=== PATIENT | male | born 1975 | race Caucasian/White ===

== ENCOUNTER → 2024-01-23 07:46 | Outpatient (REF) | payer OTHER, SELFPAY | LOC: RCS 07:46 | PROVIDERS: ATTENDING PHYSICIAN Family Medicine | DX: R00.2 Palpitations (principal) | CPT/HCPCS: 93225; 93226 ==

== ENCOUNTER → 2024-02-04 12:40 | Outpatient (REF) | payer OTHER, SELFPAY | LOC: RCS 12:40 | PROVIDERS: ATTENDING PHYSICIAN Family Medicine | DX: R00.2 Palpitations (principal) | CPT/HCPCS: 93017 ==

== ENCOUNTER 2024-04-26 10:59 | Inpatient (IN) | payer OTHER, SELFPAY ==
[2024-04-25] VITALS (13 sets, daily range): BP systolic 96–133; BP diastolic 63–85; BMI 31.0
[2024-04-25] MEDS: DILAUDID 1 MG IV (01:10)
[2024-04-25] MEDS: ZOFRAN 4 MG IV ×3 (01:10→05:16)
--- NOTE | 2024-04-25 02:01 | ED.MUSCINJ ---
HPI-Injury
General
Chief Complaint: Musculo-Skeletal Complaint
Source: patient, family and ambulance crew
Exam Limitations: none
Time Seen by Provider: 04/25/24 00:10
Nursing documentation reviewed up to this point in time: agreed with
History of Present Illness-Injury
Initial Injury comments:
Pleasant 49-year-old male presents with right ankle pain after a trip and fall. Patient states that he 'set his ankle' after the fall. Patient denies head injury or loss of consciousness. He denies any other injury.
Past History
Past History
ED Past Medical History: None
ED Past Surgical History: None
Social History
Tobacco: Non-smoker
Review of Systems
Review of Systems
Allergies reviewed?: Yes
All Other Systems: ROS reviewed and negative except as documented in HPI and ROS
Musculoskeletal: Reports joint pain and joint swelling
Musculoskeletal Injury Exam
Musculoskeletal Injury Exam
Right Ankle:
Pain with Movement?: Moderate
Tender to palpation?: Mild
Soft tissue swelling?: Mild
Hematoma-local bleeding into tissue?: Mild
Strain- Sprain- Tear (Connective tissue injury)?: Mild
Crepitus with movement?: No
Joint instability?: Yes
Malalignment/deformity?: Yes
Distal skin color and temperature: normal-warm & good color
Capillary Refill: normal
Normal distal neurovascular exam?: Yes
Phy Exam
General Physical Exam
General Presentation: well appearing and mild distress
General age: appears stated age
General Skin: warm
General Habitus: normal
Cardiovascular Exam
Cardiovascular Exam: regular rate/rhythm
Pulmonary Exam
Pulmonary Exam: no respiratory distress
Neurological Exam
Neurological Exam: alert and oriented x3
Musculoskeletal Exam
Musculoskeletal Exam: joint swelling
Skin Exam
Skin Exam: normal color and warm/dry
Psychiatric Exam
Psychiatric Exam: normal mood/affect
Injury Course
Orders/Labs/Results
Orders:
Orders
04/25/24 00:23
Ankle, Right 3 view CR [CR Ankle - Right Min 3 Views *] Urgent
Comment:
Reason For Exam: fall, deformity
04/25/24 01:03
HYDROmorphone [Dilaudid] 1 mg IV NOW STA
Ondansetron Injectable [Zofran] 4 mg IV NOW STA
04/25/24 01:45
Ankle, Right 3 view CR [CR Ankle - Right Min 3 Views *] Urgent
Comment:
Reason For Exam: post splinit
04/25/24 02:11
Crutches-Treatment ONCE
04/25/24 02:44
Ondansetron Injectable [Zofran] 4 mg .ROUTE .STK-MED ONE
04/25/24 02:47
Ondansetron Injectable [Zofran] 4 mg IV NOW STA
04/25/24 03:01
ECG [Electrocardiogram (*1)] Urgent
Reason for Study: Vertigo / Dizzy
04/25/24 03:02
EKG- Treatment ONCE
Procedures
Splinting/Sling Placement
Right Ankle:
Pre-splint extermity exam: abnormal
Type of splint: alf wrap and posterior short leg
Splint material: fiberglass
*Radiology
Radiology exam reviewed: preliminary read by ED provider (Distal fibula fracture)
*Pulse Oximetry
Patient hypoxic: no
*Critical Care Note
Total Time (30-74mins, 75-104mins- exclusive of procedures): Not Applicable
Update Note
Update Note:
04/25/2024 0431 AM: Patient observed. He states that he does not feel well especially with sitting up. He reports increased dizziness. He is warm and diaphoretic. EKG shows sinus rhythm rate of 62 with a right bundle branch block present. OK
interval is 160. Patient denies chest pain. Will admit for observation and possible orthopedic consult. Hospitalist aware.
ED Attending Note
-
Portions of this chart may have been created with voice recognition software.� Occasional wrong word or��sound alike� substitutions may have occurred due to the inherent limitations of voice recognition software.
Discharge Plan
Departure
Patient Disposition: Admit
Date of Disposition: 04/25/24
Time of Disposition: 02:04
Presentation/result/management discussed w/ accepting MD/DO: Hospitalist
Patient with high blood pressure during this ER visit?: Yes
Discharge Problem:
Ankle fracture
Instructions: How to Use Crutches, Ankle Fracture (DC), Splint Care, BLOOD PRESSURE
Prescriptions:
New
oxycodone-acetaminophen [Percocet] 5-325 mg tablet
1 tab PO Q6HPRN PRN (Reason: pain) Qty: 10 0RF
No Action
omeprazole magnesium [Prilosec OTC] 20 MG tablet,delayed release (DR/EC)
40 mg PO DAILY
losartan 50 mg
50 mg PO DAILY
magnesium oxide 400 mg
400 mg PO DAILY PRN (Reason: 'for my heart')
Amlodipine Besylate 5 mg
5 mg PO DAILY
Aspir-81 81 mg
81 mg PO PRN PRN (Reason: 'when I was in high altitude')
Patient Comments:
pt. reports he took yesterday 'b/c of the excessive heat'
Zetia 10 mg
10 mg PO DAILY
nebivolol 10 mg
10 mg PO DAILY
riboflavin (vitamin B2) 400 mg
400 mg PO DAILY
Referrals:
[facility] [Provider Group] - Next open appointment
Lyle Cancino MD [Family Provider] -
Activity Restrictions/Additional Instructions:
Your prescriptions were sent electronically to the pharmacy that you specified.
It was a pleasure meeting you and taking part in your care. We hope for your continued healing and wellness.
Please read discharge instructions in their entirety. However, they are for general education and may not describe your exact diagnosis at discharge. Information on your ER visit and medical conditions were discussed with you along with appropriate
follow up information...
If indicated, please take your medications as instructed and indicated on discharge paperwork.
Please schedule a follow up appointment as directed. Call to schedule an appointment
Please return to the emergency department with ANY change in, persisting, or worsening of symptoms. If any of your symptoms do not improve, or persist, or become more severe within 6-12 hours, please return to the emergency department for further
care.
Please return to the emergency department if you develop a headache, neck pain/stiffness, fever greater than 100.4F, chest pain, shortness of breath, persistent nausea, vomiting, slurred speech, difficulty walking, numbness/tingling, weakness, signs
of infection or any other symptoms that are worrisome to you.
If you have any questions or concerns please do not hesitate to call the Hospital at or E-mail me directly at [email or web address]
Interventions
Interventions:
*Risk Screen - Suicide Last Done: 04/25/24 00:09
*General Assessment Last Done: 04/25/24 00:09
*Neglect/Abuse Screening Last Done: 04/25/24 00:09
*ED COVID-19 Vaccine History Last Done: 04/25/24 00:09
ED-Musculoskeletal Assessment Last Done: 04/25/24 00:45
Discharge Date and Time
Print Language: MOZAMBICAN
--- NOTE | 2024-04-25 03:39 | EDRN ---
When RN entered room to d/c pt., pt. reports feeling warm and dizzy. Pt. reports he does not take narcotic medications often, reports 'I usually feel tired, not so much dizzy'. Pt. denies chest pain, does endorse nausea. EKG ordered and performed.
Pt. medicated for nausea. RN to continue to monitor.
--- NOTE | 2024-04-25 04:20 | EDRN ---
Pt. continues to feel extremely dizzy and nauseas, pt. intermittently c/o 'charley horses' to his. rt. posterior calf. DP pulses remain intact, cap. refill <3, pt. able to move toes distally to injury; however, pt. still w/ intermittent severe pain.
Pt. assisted to use bathroom, vomited twice upon return to stretcher. MD Jordan to bedside, reassessed pt. and agrees w/ pt. that he is not appropriate for discharge and warrants admission. Pt. and family agreeable w/ plan.
--- NOTE | 2024-04-25 04:23 | HPS.HSE ---
Family Physician
-
Family Physician: Lyle Cancino
Chief Complaint
-
Tripped and fall , Rt ankle pain
History of Present Illness
49 M HX HTN pw Rt ankle pain after tripped and fall.
he heard crack when he fall. Too painful to walk
Patient denies head injury or loss of consciousness. He denies any other injury.
At ER
nausea and vomiting with Dilaudid
Declined narcotics
Medical History
Past Medical History
Past Medical History: Reports HTN and Hypercholesterolemia
Past Surgical History: Reports None
Social History
Tobacco: Former Smoker
Alcohol: None
Family History
Family History: Not pertinent
Allergies / Home Medications
Allergies reflects when Allergies were last updated in [facility].
Home Medications with original date entered in [facility]
Allergy/Medication List:
Allergies
Allergy/AdvReac Type Severity Reaction Status Date / Time
No Known Allergies Allergy Verified 04/25/24 00:09
Home Medications
omeprazole magnesium 20 mg tablet,delayed release (Prilosec OTC) 40 mg PO DAILY 06/01/21
Amlodipine Besylate 5 mg PO DAILY 04/25/24
Aspir-81 81 mg PO PRN PRN 'when I was in high altitude' 04/25/24
Zetia 10 mg PO DAILY 04/25/24
losartan 50 mg PO DAILY 04/25/24
magnesium oxide 400 mg PO DAILY PRN 'for my heart' 04/25/24
nebivolol 10 mg PO DAILY 04/25/24
oxycodone-acetaminophen 5 mg-325 mg tablet (Percocet) 1 tab PO Q6HPRN PRN pain #10 tabs 04/25/24
riboflavin (vitamin B2) 400 mg PO DAILY 04/25/24
Review of Systems
-
Constitutional: Reports No Symptoms
EENT: Reports No Symptoms
Respiratory: Reports No Symptoms
Cardiac: Reports No Symptoms
Abdomen/GI: Reports No Symptoms
: Reports No Symptoms
Musculoskeletal: Reports See HPI
Skin: Reports No Symptoms
Neurological: Reports No Symptoms
Endocrine: Reports No Symptoms
Hematologic/Lymphatic: Reports No Symptoms
Psych: Reports No Symptoms
Physical Exam
Vital Signs
Vital Signs
Temp Pulse Resp BP Pulse Ox
98.2 F 71 16 127/80 95
04/25/24 00:09 04/25/24 03:30 04/25/24 00:09 04/25/24 02:36 04/25/24 03:30
Physical Exam
General: Well Developed, Well Nourished and No Apparent Distress
HEENT: NormoCephalic, Moist mucous membranes and Atraumatic
Respiratory: Clear
Cardiac: S1/S2 and Regular Rhythm; No Murmur or Rub
GI: Soft, Non Tender, Non Distended and Normal Bowel Sounds; No Organomegaly
Rectal: Deferred by Provider
Musculoskeletal: No Clubbing, No Cyanosis, No Edema and Other (Lt ankle pain and tenderness )
Skin: No Rash
Neuro: AO x 3 and Nonfocal/grossly intact
Laboratory Results
-
Nil
Data Reviewed
-
Diagnostic Radiology: Discussed with Physician
Impression/Plan
-
Data
Nil
XR Ankle:
Rt distal fibula fracture
ASSESSMENT & PLAN
Acute Rt distal fibula Fx
Acute ambulatory dysfunction
- Fx set protocol for PRN Analgesia
- PT/OT
- Ortho consulted
Intolerance to Dilaudid
Nausea and vomiting with Dilaudid
- Declined further PRN narcotics
- add anti emetics
[facility]ia HTN
- cont amlodipine
HLD
- on Zetia
Pending Rx reconciliation
DVT Px: LMWH
Code: Full
Obs MS
[2024-04-25 05:31] LABS: Hematocrit 45.8 % (39.0-52.0); Hemoglobin 15.4 g/dL (13.0-18.0); Mean Corp Hgb Conc. 33.6 g/dL (33.0-37.0); Mean Corpuscular Hgb 30.7 pg (27.0-31.0); Mean Corpuscular Volume 91.2 fL (80.0-94.0); Mean Platelet Volume 9.5 fL (7.4-10.4); Platelet Count 282 10^3/uL (130-400); Red Blood Cell Count 5.02 10^6/uL (4.70-6.10); White Blood Cell Count 15.9 10^3/uL (4.8-10.8)
[2024-04-25] MEDS: TORADOL 30 MG IV ×2 (05:36→13:03)
[2024-04-25 05:55] LABS: Blood Urea Nitrogen 38 mg/dl (9-20); Calcium 9.6 mg/dl (8.4-10.2); Carbon Dioxide 16 mmol/L (22-30); Chloride 106 mmol/L (98-107); Estimated Creatinine Clearance 108 ml/min; Glucose 137 mg/dl (70-99); Potassium 4.7 mmol/L (3.5-5.1); Sodium 138 mmol/L (135-145); eGFR > 60.00
[2024-04-25 08:47] LABS: NT-proBNP < 20.0 pg/ml
[2024-04-25 09:19] LABS: D-Dimer 0.63 ug/mlFEU (0.00-0.50)
[2024-04-25 09:51] LABS: Procalcitonin < 0.05 ng/ml (0.0-0.25)
[2024-04-25] MEDS: NORVASC 5 MG PO (10:17)
[2024-04-25] MEDS: COZAAR 50 MG PO (10:17)
[2024-04-25] MEDS: TYLENOL 650 MG PO ×4 (10:17→20:16)
[2024-04-25] MEDS: PROTONIX 40 MG PO (10:18)
[2024-04-25] MEDS: ZETIA 10 MG PO (10:18)
[2024-04-25] MEDS: BYSTOLIC 10 MG PO (10:18)
--- NOTE | 2024-04-25 11:33 | CON.ORTHO ---
Consultation
-
Date/Time Consultation Requested: Apr 26
Date/Time Consultation Performed: Apr 26
Requesting Provider: Brandie
Performing Provider: Brent for [facility]
Reason for Consultation: Right ankle fracture
Consultation - Orthopedics
History
Dictation#[id number]
I was asked to see this very pleasant 49-year-old white male with a PMH of HTN and GERD who unfortunately sustained a mechanical trip and fall at home last evening in his bedroom. He states that he turned around after putting some laundry on the
dresser next thing he knew he was on the ground. He is unsure if he had loss of consciousness. He has been having some issues with BP management recently and has been working with his PCP. Symptoms include lightheadedness and dizziness. Although
he is unsure if he lost consciousness he does not believe he struck his head. He denies any previous issues with the right foot or ankle other than a minor ankle sprain in the remote past. X-rays in the emergency room at did reveal a right
distal fibular shaft fracture with widening of the medial clear space indicative of syndesmotic and ligamentous injury resulting in an unstable ankle. We have been requested in consultation. of note he does report history of 4 spine surgeries in
the remote past in [facility]. he reports the initial surgery became infected and he required 3 additional surgeries. At 1 point he was bacteremic and needed to be treated with IV ABX via PICC. He eventually had the hardware removed.
Allergies / Home Medications
Allergy/AdvReac Type Severity Reaction Status Date / Time
No Known Allergies Allergy Verified 04/25/24 00:09
�Medication �Instructions �Recorded
omeprazole magnesium 20 mg 40 mg PO DAILY 06/01/21
tablet,delayed release (Prilosec
OTC)
Amlodipine Besylate 5 mg PO DAILY 04/25/24
Aspir-81 81 mg PO PRN PRN 'when I was in 04/25/24
high altitude'
Zetia 10 mg PO DAILY 04/25/24
losartan 50 mg PO DAILY 04/25/24
magnesium oxide 400 mg PO DAILY PRN 'for my heart' 04/25/24
nebivolol 10 mg PO DAILY 04/25/24
oxycodone-acetaminophen 5 mg-325 1 tab PO Q6HPRN PRN pain #10 tabs 04/25/24
mg tablet (Percocet)
riboflavin (vitamin B2) 400 mg PO DAILY 04/25/24
Vital Signs / Lab Results
Temp Pulse Resp BP Pulse Ox
98.5 F 81 18 124/80 96
04/25/24 09:00 04/25/24 09:00 04/25/24 09:00 04/25/24 09:00 04/25/24 09:00
04/25/24 05:19
04/25/24 05:19
Assessment / Plan
PE: Afeb. Currently at bedrest. RLE splinted and dressed. Elevated on pillows. No open wounds reported. Full sensation and function distally.
Xrays: Displaced right distal fibular shaft fracture with widening of the medial clear space indicative of an unstable ankle injury
Impression: KAMERON
Plan: Unfortunately Efe's right ankle fracture has destabilized his ankle. We had an at length discussion regarding the injury and our proposed surgical recommendations. Nonoperative and operative management of this fracture were discussed at
length, but after discussing the RBAs of each approach he has accepted all the proposed risks of proceeding with surgery. We discussed the postoperative and rehab course briefly and he understands there will be a period of non-limited
weightbearing. Fortunately he can work remotely. we will arrange for right ankle ORIF under the direction of Dr. Schuler on Friday. I discussed with attending hospitalist, Dr. Chung. Given his recent BP management issues it was felt best to
observe for 24 hours and to have a preoperative echo (tomorrow). surgical and blood consents has been signed and placed on the patient's chart. Given his spine history we will request a MRSA swab. if this is positive it would be prudent to add
preoperative vancomycin. T&S has been requested. I have made him NPO pMN on Friday night for Friday OR. Irrigation products and ABX have been ordered. Case has been posted via the nursing molding room supervisor. Please D/C Lovenox, at the latest, the night
before surgery
This patient was seen in tandem with Dr. Andrade
--- NOTE | 2024-04-25 14:32 | W.PN.HOSP.TC ---
Today's Communication/Plan
-
see outlined plan
Assessment / Plan
Assessment / Plan
Assessments:
Mechanical Fall
Displaced right distal fibular shaft fracture with widening of the medial clear space indicative of an unstable ankle injury
- OR Friday per Orthopedics
- Pain control with Toradol, Tylenol
- DVT ppx with Lovenox, dc evening prior to OR
Essential HTN with episodic dizziness causing fall
- monitor on tele
- check Echo
- continue Norvasc/Losartan for now - monitor for changes to dosing
- hold Nebivolol
HLD - statin
DVT ppx: Lovenox
Code: Full
Anticipated Discharge: > 48 hours
Subjective/Interval History
-
Date of Service: April 25, 2024
R ankle pain stable
elevated on pillows
Objective Data
-
Labs:
Laboratory Results
04/25/24
05:19
WBC 15.9 H
Hgb 15.4
Hct 45.8
Plt Count 282
Sodium 138
Potassium 4.7
Chloride 106
Carbon Dioxide 16 L
BUN 38 H
Creatinine 1.2
Glucose 137 H
Calcium 9.6
Vital Signs:
Vital Signs
Temp Pulse Resp BP Pulse Ox
98.5 F 81 18 124/80 96
04/25/24 09:00 04/25/24 09:00 04/25/24 09:00 04/25/24 09:00 04/25/24 09:00
Physical Exam
-
General: No Apparent Distress
HEENT: Normocephalic and Atraumatic
Respiratory: Negative Wheezes
Cardiac: Regular Rhythm and S1/S2
GI: Soft
Genito-urinary: No Costovertebral Tender
Musculoskeletal: Other (RLE ankle splinted/dressed, elevated on pillows)
Neuro: AO x 3
Hematologic / Lymphatic: No Lymphadenopathy
Psych: Calm
Data Reviewed
-
Total Time Spent with Patient (in minutes): 45
Labs: Labs Reviewed by me
--- NOTE | 2024-04-25 15:57 | CM ---
Per Attending, patient has an ankle fracture and will have surgery on Friday
[2024-04-25] MEDS: LOVENOX 40 MG SC (17:37)
[2024-04-25] MEDS: ROXICODONE 5 MG PO ×2 (17:37→21:37)
[2024-04-25] MEDS: SENOKOT 17.1999999999999993 MG PO (20:15)
[2024-04-25] MEDS: COLACE 100 MG PO (20:16)
[2024-04-26] MEDS: TYLENOL 650 MG PO ×6 (01:37→21:13)
[2024-04-26] MEDS: ROXICODONE 5 MG PO ×2 (01:37→05:38)
[2024-04-26 03:15] VITALS: BP 122/70
[2024-04-26 06:05] LABS: % Basophils 0.3 % (0-2); % Eosinophils 0.8 % (0-6); % Immature Granulocytes 0.9 % (0-0.5); % Monocytes 11.8 % (1.7-9.3); % Neutrophils 71.2 % (42.2-75.2); Absolute Eosinophils 0.1 10^3/uL (0-0.7); Absolute Immature Granulocytes 0.1 10^3/uL (0-0.05); Absolute Lymphocytes 1.3 10^3/uL (1.2-3.4); Absolute Neutrophils 6.2 10^3/uL (1.4-6.5); Hematocrit 40.1 % (39.0-52.0); Hemoglobin 13.3 g/dL (13.0-18.0); Mean Corp Hgb Conc. 33.2 g/dL (33.0-37.0); Mean Corpuscular Hgb 30.9 pg (27.0-31.0); Mean Corpuscular Volume 93.3 fL (80.0-94.0); Mean Platelet Volume 9.4 fL (7.4-10.4); Nucleated Red Blood Cells % 0 % (-); Platelet Count 225 10^3/uL (130-400); Red Cell Dist. Width 14.3 % (11.5-14.5); White Blood Cell Count 8.7 10^3/uL (4.8-10.8)
[2024-04-26 06:23] LABS: Blood Urea Nitrogen 29 mg/dl (9-20); Calcium 9.3 mg/dl (8.4-10.2); Carbon Dioxide 24 mmol/L (22-30); Chloride 107 mmol/L (98-107); Estimated Creatinine Clearance > 125 ml/min; Glucose 97 mg/dl (70-99); Potassium 4.6 mmol/L (3.5-5.1); Sodium 136 mmol/L (135-145); eGFR > 60.00
[2024-04-26 07:00] VITALS: BP 136/83
--- NOTE | 2024-04-26 08:01 | W.PN.UPDATE ---
Update Note
Progress Note Update
49-year-old male right bimalleolar equivalent ankle fracture DOI 25 April 2024
-Plan for OR for definitive fixation [address] Schuler
-Consent on file
-Nasal MRSA swab pending; if positive recommend preoperative vancomycin and nasal mupirocin. Pending at time of note
-Hold Lovenox night before surgery, n.p.o. at midnight
-Irrigation and antibiotic preop orders on file
[2024-04-26] MEDS: COLACE 100 MG PO ×2 (09:23→21:13)
[2024-04-26] MEDS: SENOKOT 17.1999999999999993 MG PO ×2 (09:23→21:13)
[2024-04-26] MEDS: PROTONIX 40 MG PO (09:23)
[2024-04-26] MEDS: ZETIA 10 MG PO (09:24)
--- NOTE | 2024-04-26 10:55 | W.PN.HOSP.TC ---
Addendum entered and electronically signed by Michelle Chung MD 04/26/24 14:45:
unremarkable Echocardiogram. ok to proceed to OR without additional testing
Original Note:
Today's Communication/Plan
-
Coreg for BP Control
await Echo for pre-op evaluation
Assessment / Plan
Assessment / Plan
Assessments:
Mechanical Fall
Displaced right distal fibular shaft fracture with widening of the medial clear space indicative of an unstable ankle injury
- OR Friday per Orthopedics
- Pain control with Toradol, Tylenol
- DVT ppx with Lovenox, dc after today's afternoon dose
Essential HTN with episodic dizziness causing fall
- monitor on tele
- Echo
- stop Nebivolol/Norvasc/Losartan
- start Coreg 12.5mg BID And assess response
- noted prior Holter/Stress were unremarkable
HLD - statin
DVT ppx: Lovenox until this evening then DC for surgery. add SCDS to LLE
Code: Full
Anticipated Discharge: > 48 hours
Subjective/Interval History
-
Date of Service: April 26, 2024
no new complaints
Objective Data
-
Labs:
Laboratory Results
04/26/24
05:17
WBC 8.7
Hgb 13.3
Hct 40.1
Plt Count 225 D
Sodium 136
Potassium 4.6
Chloride 107
Carbon Dioxide 24
BUN 29 H
Creatinine 1.0
Glucose 97
Calcium 9.3
Vital Signs:
Vital Signs
Temp Pulse Resp BP Pulse Ox
97.6 F 59 18 136/83 97
04/26/24 07:00 04/26/24 07:00 04/26/24 07:00 04/26/24 07:00 04/26/24 07:00
I&O
04/25/24 04/26/24 04/27/24
06:59 06:59 06:59
Intake Total 960 / 960
Output Total 1125 / 1125
Balance -165 / -165
Physical Exam
-
General: No Apparent Distress
HEENT: Normocephalic and Atraumatic
Cardiac: Regular Rhythm and S1/S2
GI: Soft
Genito-urinary: No Costovertebral Tender
Neuro: AO x 3
Hematologic / Lymphatic: No Lymphadenopathy
Psych: Calm
Data Reviewed
-
Total Time Spent with Patient (in minutes): 41
Labs: Labs Reviewed by me
[2024-04-26 11:00] VITALS: BP 137/77
[2024-04-26] MEDS: COREG 12.5 MG PO ×2 (11:16→21:14)
[2024-04-26] MEDS: COZAAR PO (12:40)
[2024-04-26] MEDS: NORVASC PO (12:40)
[2024-04-26 15:00] VITALS: BP 141/83
--- NOTE | 2024-04-26 16:03 | CM ---
Alert awake oriented patient who lives with his Jo Ann who lives in a 2 story home with 1 step to enter and 12 steps to bed and bathroom. He is independent in all activities of daily living [employer]. He is now using crutches and walker . He will have
surgery tomorrow.
No VN hx /No SNF hx
Pharmacy [facility] [place]
PCP DR Cancino
PLAN Home no anticipated needs
[2024-04-26] MEDS: LOVENOX 40 MG SC (17:16)
[2024-04-26 19:33] VITALS: BP 113/80
[2024-04-26 23:04] VITALS: BP 124/75
[2024-04-27] VITALS (14 sets, daily range): BP systolic 132–153; BP diastolic 83–106; PULSE 73–103
[2024-04-27] MEDS: TYLENOL 650 MG PO ×5 (00:56→19:58)
[2024-04-27 05:39] LABS: % Basophils 0.7 % (0-2); % Lymphocytes 21.4 % (20.5-51.1); % Monocytes 11.6 % (1.7-9.3); % Neutrophils 64.3 % (42.2-75.2); Absolute Basophils 0.1 10^3/uL (0-0.2); Absolute Eosinophils 0.1 10^3/uL (0-0.7); Absolute Immature Granulocytes 0.1 10^3/uL (0-0.05); Absolute Lymphocytes 1.6 10^3/uL (1.2-3.4); Absolute Monocytes 0.9 10^3/uL (0.1-0.6); Absolute Neutrophils 4.9 10^3/uL (1.4-6.5); Hematocrit 41.6 % (39.0-52.0); Hemoglobin 13.9 g/dL (13.0-18.0); Mean Corp Hgb Conc. 33.4 g/dL (33.0-37.0); Mean Corpuscular Hgb 30.8 pg (27.0-31.0); Mean Corpuscular Volume 92.2 fL (80.0-94.0); Nucleated Red Blood Cells % 0 % (-); Platelet Count 231 10^3/uL (130-400); Red Blood Cell Count 4.51 10^6/uL (4.70-6.10); Red Cell Dist. Width 13.8 % (11.5-14.5); White Blood Cell Count 7.7 10^3/uL (4.8-10.8)
[2024-04-27 06:08] LABS: Blood Urea Nitrogen 22 mg/dl (9-20); Calcium 9.4 mg/dl (8.4-10.2); Carbon Dioxide 27 mmol/L (22-30); Chloride 105 mmol/L (98-107); Estimated Creatinine Clearance > 125 ml/min; Glucose 101 mg/dl (70-99); Potassium 4.5 mmol/L (3.5-5.1); Sodium 139 mmol/L (135-145); eGFR > 60.00
--- NOTE | 2024-04-27 07:33 | W.PN.UPDATE ---
Update Note
Progress Note Update
Mr. Kellogg is resting comfortably in bed this morning. He reports that his pain is well controlled.
Directed exam of RLE. Dressings in place. ROM ankle deferred. Wiggle all toes. Sensation intact to light touch. Cap refill <2secs
49M with right fibula fracture
-Plan for OR later today for right ankle ORIF under the direction of Dr. Schuler
-Consents have been obtained
-Remain NPO
-NWB to RLE
-Pain control as needed
-Will follow along
[2024-04-27 08:15] LABS: COVID-19 Antigen Negative (Negative)
--- NOTE | 2024-04-27 09:06 | W.PN.HOSP.TC ---
Today's Communication/Plan
-
SCDS to LLE only
continue Coreg for BP Control
ok to proceed to OR this afternoon for right ankle ORIF
Assessment / Plan
Assessment / Plan
Assessments:
Mechanical Fall
Displaced right distal fibular shaft fracture with widening of the medial clear space indicative of an unstable ankle injury
- OR today for right ankle ORIF with Orthopedics/Podiatry
- Pain control with Toradol, Tylenol
- Post-op PT/OT
Essential HTN with episodic dizziness causing fall
- monitor on tele
- Echo: normal
- stop Nebivolol/Norvasc/Losartan
- start Coreg 12.5mg BID And follow BP trends; so far responding well
- noted prior Holter/Stress were unremarkable
HLD - statin
DVT ppx: SCDs to LLE while off Lovenox for surgery
Code: Full
Anticipated Discharge: 24 - 48 hours
Subjective/Interval History
-
Date of Service: April 27, 2024
no acute complaints
for OR Today
Objective Data
-
Labs:
Laboratory Results
04/27/24
05:10
WBC 7.7
Hgb 13.9
Hct 41.6
Plt Count 231
Sodium 139
Potassium 4.5
Chloride 105
Carbon Dioxide 27
BUN 22 H
Creatinine 0.9
Glucose 101 H
Calcium 9.4
Vital Signs:
Vital Signs
Temp Pulse Resp BP Pulse Ox
98.1 F 66 18 136/85 95
04/27/24 07:00 04/27/24 07:00 04/27/24 07:00 04/27/24 07:00 04/27/24 07:00
I&O
06/24/24 06/25/24 06/26/24
06:59 06:59 06:59
Intake Total 960 / 960 2130 / 2130
Output Total 1125 / 1125 1100 / 1100
Balance -165 / -165 1030 / 1030
Physical Exam
-
General: No Apparent Distress
HEENT: Normocephalic and Atraumatic
Respiratory: Negative Wheezes
Cardiac: Regular Rhythm and S1/S2
Musculoskeletal: Other (RLE ankle splinted/dressed, elevated on pillows)
Neuro: AO x 3
Psych: Calm
Data Reviewed
-
Total Time Spent with Patient (in minutes): 45
Labs: Labs Reviewed by me
[2024-04-27] MEDS: ZETIA 10 MG PO (09:11)
[2024-04-27] MEDS: PROTONIX 40 MG PO (09:12)
[2024-04-27] MEDS: COLACE 100 MG PO ×2 (09:12→19:58)
[2024-04-27] MEDS: SENOKOT 17.1999999999999993 MG PO ×2 (09:12→19:58)
[2024-04-27] MEDS: COZAAR PO (09:14)
[2024-04-27] MEDS: NORVASC PO (09:14)
[2024-04-27] MEDS: COREG 12.5 MG PO ×2 (09:14→19:58)
--- NOTE | 2024-04-27 10:05 | W.PN.UPDATE ---
Update Note
Progress Note Update
notified by RN and infection prevention that patients roommate is COVID+ so will repeat swabs on 04/29 and 05/01 (if remains hospitalized into those dates). Patient without symptoms.
[2024-04-27] MEDS: TYLENOL PO ×2 (15:21→23:53)
--- NOTE | 2024-04-27 17:07 | W.PN.UPDATE ---
Update Note
Progress Note Update
s/p right ankle ORIF with syndesmotic and deltoid repair
-NWB RLE
-Ancef x 3 doses or until discharge if sooner than 24 hours
-PT/OT eval
-Dressings C/D/I
-Pain control prn
-Follow up 2 weeks
[2024-04-27] MEDS: DILAUDID 0.5 MG IV ×2 (17:21→17:37)
[2024-04-27] MEDS: ANCEF 5 IV (22:48)
[2024-04-28] VITALS (8 sets, daily range): BP systolic 116–153; BP diastolic 74–90; PULSE 72–74
[2024-04-28] MEDS: TYLENOL 650 MG PO ×5 (04:41→23:42)
[2024-04-28] MEDS: ANCEF 5 IV ×2 (05:45→14:01)
[2024-04-28 05:48] LABS: % Basophils 0.2 % (0-2); % Immature Granulocytes 0.9 % (0-0.5); % Lymphocytes 11.8 % (20.5-51.1); % Monocytes 8.8 % (1.7-9.3); % Neutrophils 78.3 % (42.2-75.2); Absolute Immature Granulocytes 0.1 10^3/uL (0-0.05); Absolute Lymphocytes 1.4 10^3/uL (1.2-3.4); Hematocrit 40.2 % (39.0-52.0); Hemoglobin 14.1 g/dL (13.0-18.0); Mean Corp Hgb Conc. 35.1 g/dL (33.0-37.0); Mean Corpuscular Hgb 31.1 pg (27.0-31.0); Mean Corpuscular Volume 88.7 fL (80.0-94.0); Mean Platelet Volume 8.8 fL (7.4-10.4); Nucleated Red Blood Cells % 0 % (-); Platelet Count 249 10^3/uL (130-400); Red Blood Cell Count 4.53 10^6/uL (4.70-6.10); Red Cell Dist. Width 13.7 % (11.5-14.5); White Blood Cell Count 11.5 10^3/uL (4.8-10.8)
[2024-04-28 06:46] LABS: Blood Urea Nitrogen 24 mg/dl (9-20); Calcium 9.1 mg/dl (8.4-10.2); Carbon Dioxide 26 mmol/L (22-30); Chloride 102 mmol/L (98-107); Estimated Creatinine Clearance > 125 ml/min; Glucose 103 mg/dl (70-99); Potassium 4.4 mmol/L (3.5-5.1); Sodium 136 mmol/L (135-145); eGFR > 60.00
--- NOTE | 2024-04-28 07:44 | W.PN.ORTHO ---
Today's Communication / Plan
-
49 yp M POD 1 right ankle ORIF with syndesmotic and deltoid repair under the direction of Dr. Bhatt
--Non-weight bearing right lower extremity. We appreciate the assistance of PT/OT while patient admitted.
--Ancef x 3 doses or until discharge if sooner than 24 hours.
--ASA 325 mg daily x4 weeks for DVT ppx.
--Maintain surgical dressing until post-operative visit. Follow up outpatient at 2 weeks post-op for suture removal and repeat x-rays.
--Pain control as needed. Ice and elevation for pain and edema control.
--Orthopedics will continue to follow along.
Assessment
.
Distal Motor Intact: Yes
Dressing:
Clean, dry and intact.
Plan
.
Surgery / Date: Right ankle ORIF, Harini, 04/27
DVT Prophylaxis: Aspirin
Activity:
Out of bed.
PT/OT
Subjective
.
.:
Mr. Kellogg is POD1 following his Right ankle bimalleolar ankle open reduction internal fixation with syndesmotic fixation and deltoid repair as well as stress exam under anesthesia performed by Dr. Schuler. He is resting comfortably in bed this
morning, and reports his pain is well controlled at present.
Vital Signs and Labs
.
Vital Signs and Labs:
Lab Results
04/28/24 05:33
04/28/24 05:33
Temp Pulse Resp BP Pulse Ox
97.8 F 66 12 116/74 96
04/28/24 03:00 04/28/24 03:00 04/28/24 03:00 04/28/24 03:00 04/28/24 03:00
Physical Exam
-
Directed exam of the right lower extremity reveals surgical splint clean, dry and intact. Good color and warmth of toes. Patient able to wiggle toes. Sensation intact to light touch above and below splint. Capillary refill <2 seconds.
[2024-04-28] MEDS: COREG 12.5 MG PO ×2 (08:09→20:04)
[2024-04-28] MEDS: COLACE 100 MG PO ×2 (08:09→20:04)
[2024-04-28] MEDS: SENOKOT 17.1999999999999993 MG PO ×2 (08:09→20:04)
[2024-04-28] MEDS: PROTONIX 40 MG PO (08:09)
[2024-04-28] MEDS: ZETIA 10 MG PO (08:09)
--- NOTE | 2024-04-28 11:31 | W.PN.HOSP.TC ---
Today's Communication/Plan
-
monitor vitals
see plan
pain control
pt/ot
DVT ppx per ortho post OP; confirmed, full dose aspirin for 4 weeks
Assessment / Plan
Assessment / Plan
Assessments:
Mechanical Fall
Displaced right distal fibular shaft fracture with widening of the medial clear space indicative of an unstable ankle injury
-s/p right ankle ORIF with Orthopedics/Podiatry
-cw pain control
PT/OT rec outpt PT/OT
ASA 325 mg daily x4 weeks for DVT ppx.
--Maintain surgical dressing until post-operative visit. Follow up outpatient at 2 weeks post-op for suture removal and repeat x-rays.
--Pain control as needed. Ice and elevation for pain and edema control.
Essential HTN with episodic dizziness causing fall
- monitor on tele
- Echo: normal
- stop Nebivolol/Norvasc/Losartan
- start Coreg 12.5mg BID And follow BP trends; so far responding well
- noted prior Holter/Stress were unremarkable
HLD - statin
DVT ppx: SCDs to LLE; post OP per ortho
Code: Full
General: No Apparent Distress
HEENT: Normocephalic and Atraumatic
Respiratory: Negative Wheezes
Cardiac: Regular Rhythm and S1/S2
Musculoskeletal: Other (RLE ankle splinted/dressed, elevated on pillows)
Neuro: AO x 3
Psych: Calm
Anticipated Discharge: Within 24 hours
Subjective/Interval History
-
Date of Service: April 28, 2024
has pain
Objective Data
-
Labs:
Laboratory Results
04/28/24
05:33
WBC 11.5 H
Hgb 14.1
Hct 40.2
Plt Count 249
Sodium 136
Potassium 4.4
Chloride 102
Carbon Dioxide 26
BUN 24 H
Creatinine 1.0
Glucose 103 H
Calcium 9.1
Vital Signs:
Vital Signs
Temp Pulse Resp BP Pulse Ox
97.9 F 66 18 135/88 97
04/28/24 07:00 04/28/24 07:00 04/28/24 07:00 04/28/24 07:00 04/28/24 07:00
I&O
04/27/24 04/28/24 04/29/24
06:59 06:59 06:59
Intake Total 2130 / 2130 1210 / 1210
Output Total 1100 / 1100 1400 / 1400
Balance 1030 / 1030 -190 / -190
[2024-04-28] MEDS: ASPIRIN ENTERIC COATED 325 MG PO (12:03)
[2024-04-28] MEDS: TORADOL 30 MG IV ×2 (14:01→20:04)
--- NOTE | 2024-04-28 16:16 | CM ---
Case management following for d/c planning
POD 1 ORIF with syndesmotic and deltoid repair
PT recommending out patient therapy at d/c
Pt will need Rx at d/c
Pt will have ride at d/c
Plan - home with outpatient physical therapy
[2024-04-28] MEDS: TYLENOL PO (20:04)
[2024-04-29 03:16] VITALS: BP 143/87
[2024-04-29] MEDS: TYLENOL PO (05:02)
--- NOTE | 2024-04-29 06:06 | W.PN.ORTHO ---
Today's Communication / Plan
-
49 y/o M POD 2 right ankle ORIF with syndesmotic and deltoid repair under the direction of Dr. Schuler.
--Non-weight bearing right lower extremity. We appreciate the assistance of PT/OT while patient admitted.
--ASA 325 mg daily x4 weeks for DVT ppx.
--Maintain surgical dressing until post-operative visit. Follow up outpatient at 2 weeks post-op for suture removal and repeat x-rays.
--Pain control as needed. Ice and elevation for pain and edema control.
--Orthopedics will sign off at this time. Please reengage with any further questions or concerns.
Assessment
.
Distal Motor Intact: Yes
Dressing:
Clean, dry and intact.
Assessment:
POD2 Right Ankle ORIF 04/27/[address] Schuler
Plan
.
Surgery / Date: Right ankle ORIF, Harini, 04/27
DVT Prophylaxis: Aspirin
Activity:
Out of bed.
PT/OT
Discharge Information:
Appreciate CM
Subjective
.
.:
Mr. Kellogg is POD2 following his Right ankle bimalleolar ankle open reduction internal fixation with syndesmotic fixation and deltoid repair as well as stress exam under anesthesia performed by Dr. Schuler. Patient resting comfortably.
Vital Signs and Labs
.
Vital Signs and Labs:
Temp Pulse Resp BP Pulse Ox
98.0 F 72 16 143/87 96
04/29/24 03:16 04/29/24 03:16 04/29/24 03:16 04/29/24 03:16 04/29/24 03:16
Physical Exam
-
Directed exam of the right lower extremity reveals surgical splint clean, dry and intact. Good color and warmth of toes. Patient able to wiggle toes. Sensation intact to light touch above and below splint. Capillary refill <2 seconds
[2024-04-29 06:27] LABS: % Basophils 0.4 % (0-2); % Eosinophils 0.4 % (0-6); % Immature Granulocytes 1.5 % (0-0.5); % Lymphocytes 21.3 % (20.5-51.1); % Monocytes 11.5 % (1.7-9.3); % Neutrophils 64.9 % (42.2-75.2); Absolute Immature Granulocytes 0.2 10^3/uL (0-0.05); Absolute Lymphocytes 2.1 10^3/uL (1.2-3.4); Absolute Monocytes 1.1 10^3/uL (0.1-0.6); Absolute Neutrophils 6.3 10^3/uL (1.4-6.5); Hematocrit 40.9 % (39.0-52.0); Hemoglobin 13.5 g/dL (13.0-18.0); Mean Corpuscular Hgb 30.6 pg (27.0-31.0); Mean Corpuscular Volume 92.7 fL (80.0-94.0); Nucleated Red Blood Cells % 0 % (-); Platelet Count 245 10^3/uL (130-400); Red Blood Cell Count 4.41 10^6/uL (4.70-6.10); Red Cell Dist. Width 13.6 % (11.5-14.5); White Blood Cell Count 9.7 10^3/uL (4.8-10.8)
[2024-04-29 06:46] LABS: COVID-19 Antigen Negative (Negative)
[2024-04-29 06:49] LABS: Blood Urea Nitrogen 30 mg/dl (9-20); Calcium 9.1 mg/dl (8.4-10.2); Carbon Dioxide 29 mmol/L (22-30); Chloride 102 mmol/L (98-107); Estimated Creatinine Clearance 118 ml/min; Glucose 98 mg/dl (70-99); Potassium 4.4 mmol/L (3.5-5.1); Sodium 137 mmol/L (135-145); eGFR > 60.00
[2024-04-29] MEDS: TYLENOL 650 MG PO (07:11)
[2024-04-29] MEDS: SENOKOT 17.1999999999999993 MG PO (07:11)
[2024-04-29] MEDS: COLACE 100 MG PO (07:11)
[2024-04-29] MEDS: PROTONIX 40 MG PO (07:11)
[2024-04-29] MEDS: ZETIA 10 MG PO (07:11)
[2024-04-29] MEDS: ASPIRIN ENTERIC COATED 325 MG PO (07:11)
[2024-04-29] MEDS: COREG 12.5 MG PO (07:11)
[2024-04-29 07:32] VITALS: BP 160/101
--- NOTE | 2024-04-29 10:19 | W.PN.HOSP.TC ---
Today's Communication/Plan
-
Monitor vital signs and see plan
Pain control
PT/OT, outpatient PT/OT prescription provided to patient
Discharge today
Time of discharge 37 minutes
Assessment / Plan
Assessment / Plan
Assessments:
Mechanical Fall
Displaced right distal fibular shaft fracture with widening of the medial clear space indicative of an unstable ankle injury
-s/p right ankle ORIF with Orthopedics/Podiatry
-cw pain control
PT/OT rec outpt PT/OT
ASA 325 mg daily x4 weeks for DVT ppx.
--Maintain surgical dressing until post-operative visit. Follow up outpatient at 2 weeks post-op for suture removal and repeat x-rays.
--Pain control as needed. Ice and elevation for pain and edema control.
Essential HTN with episodic dizziness causing fall
- monitor on tele
- Echo: normal
- stop Nebivolol/Norvasc/Losartan
- start Coreg 12.5mg BID And follow BP trends; so far responding well
- noted prior Holter/Stress were unremarkable
HLD - statin
DVT ppx: SCDs to LLE; ASA per ortho
Code: Full
General: No Apparent Distress
HEENT: Normocephalic and Atraumatic
Respiratory: Negative Wheezes
Cardiac: Regular Rhythm and S1/S2
Musculoskeletal: Other (RLE ankle splinted/dressed, elevated on pillows)
Neuro: AO x 3
Psych: Calm
Anticipated Discharge: Today
Subjective/Interval History
-
Date of Service: April 29, 2024
Denies nausea
Objective Data
-
Labs:
Laboratory Results
04/29/24
05:44
WBC 9.7
Hgb 13.5
Hct 40.9
Plt Count 245
Sodium 137
Potassium 4.4
Chloride 102
Carbon Dioxide 29
BUN 30 H
Creatinine 1.1
Glucose 98
Calcium 9.1
Vital Signs:
Vital Signs
Temp Pulse Resp BP Pulse Ox
97.4 F 95 18 160/101 98
04/29/24 07:32 04/29/24 07:32 04/29/24 07:32 04/29/24 07:32 04/29/24 07:32
I&O
04/28/24 04/29/24 04/30/24
06:59 06:59 06:59
Intake Total 1210 / 1210 1440 / 1440
Output Total 1400 / 1400 1200 / 1200
Balance -190 / -190 240 / 240
--- NOTE | 2024-04-29 10:42 | W.DCSUMMARY ---
Discharge Summary
Discharge Data
Date of Admission: 04/26/24
Date of Discharge: 04/29/24
-
Pending Results: No
Hospital Course
49-year-old male with history of essential hypertension, hyperlipidemia came to the hospital after mechanical fall with displaced right distal fibular shaft fracture. He was seen by orthopedics and podiatry and was taken to the OR for his ankle
surgery. After the surgery he ambulated with physical therapy who recommended him to follow-up with outpatient physical therapy. For DVT prophylaxis he was put on full dose aspirin. It appears that he had a fall due to episodic dizziness likely
secondary to multiple blood pressure medications. On discharge he was only on Coreg. Once patient symptoms continue to improve and he was able to ambulate, he was then discharged home with instructions to follow-up with all his physicians
outpatient.
Discharge Plan
-
Patient Disposition: Home (Routine Discharge)
Discharge Diagnosis/Procedures: Mechanical Fall
Displaced right distal fibular shaft fracture with widening of the medial clear space indicative of an unstable ankle injury
-s/p right ankle ORIF
Essential HTN with episodic dizziness
Condition: Fair
Diet: As tolerated
Activity: Other activity
Additional Activity: Non-weight bearing right lower extremity
Driving Restrictions: Not until seen by your Dr
Bathing Restrictions: None
Activity Restrictions/Additional Instructions:
Non-weight bearing right lower extremity
--ASA 325 mg daily x4 weeks for DVT ppx.
--Maintain surgical dressing until post-operative visit. Follow up outpatient at 2 weeks post-op for suture removal and repeat x-rays.
--Pain control as needed. Ice and elevation for pain and edema control.
Referrals:
Derrek Schuler DPM [Active] - in two weeks
Lyle Cancino MD [Family Provider] - in less than 1 week
Prescriptions:
New
aspirin 325 mg Tablet,Delayed Release (/Ec)
325 mg PO DAILY Qty: 28 0RF
docusate sodium 100 mg Capsule
100 mg PO BID Qty: 0 0RF
sennosides [Senna Laxative] 8.6 mg Tablet
17.2 mg PO BID Qty: 0 0RF
carvedilol 12.5 mg Tablet
12.5 mg PO BID Qty: 60 0RF
acetaminophen 325 mg Tablet
650 mg PO Q4HWA Qty: 0 0RF
oxycodone 5 mg Tablet
5 mg PO Q4HPRN PRN (Reason: moderate to severe pain) Qty: 20 0RF
Continued
omeprazole magnesium [Prilosec OTC] 20 MG tablet,delayed release (DR/EC)
40 mg PO DAILY
magnesium oxide 400 mg magnesium Tablet
400 mg PO DAILY PRN (Reason: Headaches )
ezetimibe [Zetia] 10 mg Tablet
10 mg PO DAILY
riboflavin (vitamin B2) 400 mg Tablet
400 mg PO DAILY
Held
Aspir-81 81 mg
81 mg PO PRN PRN (Reason: 'when I was in high altitude')
Hold Instructions: restart when done with full dose aspirin
Patient Comments:
pt. reports he took yesterday 'b/c of the excessive heat'
Discontinued
losartan 50 mg Tablet
50 mg PO DAILY
amlodipine 5 mg Tablet
5 mg PO DAILY
nebivolol 10 mg Tablet
10 mg PO DAILY
Discharge Orders:
Discharge Patient (As Directed); Ordered 04/29/24
Ordered By: Sterling Byrd
Discharge Date and Time
Discharge Date/Time: 04/29/24 12:45
Print Language: LITHUANIAN
--- NOTE | 2024-04-29 11:14 | CM ---
Case management following for d/c planning
Pt for d/c today
Has ride home with family
PT recommending out-patient PT
Plan - home with out-patient PT
[2024-04-29 11:18] VITALS: BP 136/95
[2024-04-29] MEDS: TORADOL 30 MG IV (11:50)
== END 2024-04-29 12:45 | disposition home or self-care (01) | DRG 494 ==
LOC: 3 WEST ACU 10:59
PROVIDERS: Internal Medicine; Student in an Organized Health Care Education/Training Program; ADMITTING PHYSICIAN Internal Medicine; ATTENDING PHYSICIAN Internal Medicine; CONSULT PHYSICIAN Specialist; EMERGENCY PHYSICIAN Student in an Organized Health Care Education/Training Program; FAMILY PHYSICIAN Family Medicine
PROC: 0QSJ04Z Reposition Right Fibula with Internal Fixation Device, Open Approach (ICD-10-PCS; 2024-04-27)
PROC: 0MQQ0ZZ Repair Right Ankle Bursa and Ligament, Open Approach (ICD-10-PCS; 2024-04-27)
DX: S82.431A Displaced oblique fracture of shaft of right fibula, initial encounter for closed fracture (principal); S93.421A Sprain of deltoid ligament of right ankle, initial encounter; W01.0XXA Fall on same level from slipping, tripping and stumbling without subsequent striking against object, initial encounter; Y93.01 Activity, walking, marching and hiking; Y92.9 Unspecified place or not applicable; E78.00 Pure hypercholesterolemia, unspecified; I10 Essential (primary) hypertension; K21.9 Gastro-esophageal reflux disease without esophagitis; Z87.891 Personal history of nicotine dependence
CPT/HCPCS: 29515; 73610; 76000; 80048; 83880; 84145; 85025; 85027; 85379; 86850; 86900; 86901; 87070; 87811; 93005; 93306; 96374; 96375; 96376; 97162; 97166; 99285; C1713

== ENCOUNTER → 2024-08-30 06:15 | Day surgery (SDC) | payer OTHER, SELFPAY | LOC: SDS 06:15 | PROVIDERS: ATTENDING PHYSICIAN Student in an Organized Health Care Education/Training Program | DX: T84.84XA Pain due to internal orthopedic prosthetic devices, implants and grafts, initial encounter (principal); Y83.1 Surgical operation with implant of artificial internal device as the cause of abnormal reaction of the patient, or of later complication, without mention of misadventure at the time of the procedure; Z53.9 Procedure and treatment not carried out, unspecified reason | CPT/HCPCS: 20680 ==

== ENCOUNTER → 2024-11-18 07:08 | Outpatient (REF) | payer OTHER, SELFPAY | LOC: HWRAD 07:08 | PROVIDERS: ATTENDING PHYSICIAN Family Medicine | DX: R79.89 Other specified abnormal findings of blood chemistry (principal) | CPT/HCPCS: 76700 ==

== ENCOUNTER → 2025-02-17 06:50 | Outpatient (REF) | payer OTHER, SELFPAY ==
[2025-02-17 11:55] LABS: ALT (SGPT) 53 U/L (0-50); AST (SGOT) 35 U/L (17-59); Albumin 4.3 g/dl (3.5-5.0); Alkaline Phosphatase 71 U/L (38-126); Blood Urea Nitrogen 17 mg/dl (9-20); Calcium 9.4 mg/dl (8.4-10.2); Carbon Dioxide 23 mmol/L (22-30); Chloride 108 mmol/L (98-107); Creatine Phosphokinase 162 U/L (55-170); Glucose 111 mg/dl (70-99); Potassium 4.7 mmol/L (3.5-5.1); Sodium 140 mmol/L (135-145); Total Bilirubin 2.2 mg/dl (0.2-1.3); Total Protein 6.9 g/dl (6.3-8.2); eGFR > 60.00
[2025-02-18 20:55] LABS: Aldolase 4.7 U/L (1.2-7.6)
== END ==
LOC: HWLAB 06:50
PROVIDERS: ATTENDING PHYSICIAN Physician Assistant; FAMILY PHYSICIAN Family Medicine
DX: M25.50 Pain in unspecified joint (principal); M79.10 Myalgia, unspecified site; R76.9 Abnormal immunological finding in serum, unspecified
CPT/HCPCS: 36415; 73070; 73100; 80053; 82085; 82550